=== PATIENT | female | born 1980 | race Caucasian/White ===

== ENCOUNTER 2016-08-10 11:34 | Emergency (ER) | payer OTHER ==
[2016-08-10 12:16] LABS: HEMOGLOBIN 13.4 gm/dl (12.3-15.3); RED BLOOD COUNT 4.82 M/UL (4.00-5.10); WHITE BLOOD COUNT 13.9 K/UL (4.5-11.0)
[2016-08-10 12:39] LABS: BUN/CREATININE RATIO 12 (0-10)
== END 2016-08-10 17:50 ==
LOC: ER1 11:34
PROVIDERS: Emergency Medicine
DX: T18.9XXA Foreign body of alimentary tract, part unspecified, initial encounter (principal)
CPT/HCPCS: 36415; 71010; 80053; 81001; 82550; 82553; 83874; 84484; 84703; 85025; 93005; 99285